=== PATIENT | male | born 1945 | race Caucasian/White ===

== ENCOUNTER → 2018-08-12 | Outpatient (CLI) | payer MEDICARE, OTHER | LOC: M WUC 12:13 | DX: R05 Cough (principal) | CPT/HCPCS: 71046 ==

== ENCOUNTER → 2021-10-22 | Outpatient (CLI) | payer MEDICARE, OTHER ==
[~2021-10-22] MED LIST: COUM1TAB19 PO; COUMADIN PO; MAPA500T17 PO; MUPI1OIN2 TOP; OXYC1TAB23 PO; TYLENOL PO; WARF5VL PO
== END ==
LOC: M WUC 09:05
PROVIDERS: ATTEND Internal Medicine
DX: R06.00 Dyspnea, unspecified (principal)

== ENCOUNTER → 2021-11-17 | Outpatient (CLI) | payer MEDICARE, OTHER | LOC: M CARPUL 09:05 | PROVIDERS: ATTEND Internal Medicine | DX: R06.00 Dyspnea, unspecified (principal) ==

== ENCOUNTER → 2022-01-23 | Outpatient (CLI) | payer MEDICARE, OTHER | LOC: M PAIN 09:00 | PROVIDERS: ATTEND Anesthesiology | DX: M54.50 Low back pain, unspecified (principal); E11.9 Type 2 diabetes mellitus without complications; I74.9 Embolism and thrombosis of unspecified artery; M79.18 Myalgia, other site; Z96.651 Presence of right artificial knee joint; Z88.0 Allergy status to penicillin; Z91.040 Latex allergy status; Z79.84 Long term (current) use of oral hypoglycemic drugs; Z79.899 Other long term (current) drug therapy ==

== ENCOUNTER → 2022-02-02 | Outpatient (CLI) | payer MEDICARE, OTHER | LOC: M RAD 08:28 | PROVIDERS: ATTEND Physician Assistant Medical | DX: K42.9 Umbilical hernia without obstruction or gangrene (principal) ==

== ENCOUNTER → 2022-11-26 | Outpatient (REF) | payer MEDICARE, OTHER ==
[2022-11-26 13:51] LABS: PERCENT SATURATION 7.9 % (19.7-50.0)
[2022-11-26 13:52] LABS: FOLATE 20.3 NG/ML (>5.4)
== END ==
LOC: M LAB REF 12:10
PROVIDERS: ATTEND Internal Medicine
DX: D50.9 Iron deficiency anemia, unspecified (principal)

== ENCOUNTER → 2022-12-17 | Outpatient (CLI) | payer MEDICARE, OTHER | LOC: M RAD 08:22 | PROVIDERS: ATTEND Internal Medicine | DX: R74.8 Abnormal levels of other serum enzymes (principal) ==

== ENCOUNTER → 2022-12-18 | Outpatient (REF) | payer MEDICARE, OTHER | LOC: M LAB REF 16:23 | PROVIDERS: ATTEND Internal Medicine | DX: K86.2 Cyst of pancreas (principal) ==

== ENCOUNTER → 2023-01-01 | Outpatient (CLI) | payer MEDICARE, OTHER | LOC: M PLARAD 09:07 | PROVIDERS: ATTEND Orthopaedic Surgery | DX: R10.9 Unspecified abdominal pain (principal) ==

== ENCOUNTER → 2023-01-13 | Outpatient (CLI) | payer MEDICARE, OTHER ==
[~2023-01-13] MED LIST changes: +ADJU0.5V IM; +ELIQ5TAB; +FERR325T3 PO; +GABA-1171 PO; +LIDO5DIS41 TOP; +LIDOCAINE 1% MDV 20ML VIAL As Ordered ONE; +METF10004 PO; +SIMV20TA22 PO; +VITMTA PO
[2023-01-13 14:45] VITALS: BP 132/62
== END ==
LOC: M IRPRO 11:20
PROVIDERS: ATTEND Internal Medicine
DX: K76.0 Fatty (change of) liver, not elsewhere classified (principal)

== ENCOUNTER → 2023-01-26 | Outpatient (CLI) | payer MEDICARE, OTHER ==
[~2023-01-26] MED LIST changes: -LIDOCAINE 1% MDV 20ML VIAL As Ordered ONE
== END ==
LOC: M LABSMTC 08:53
PROVIDERS: ATTEND Anesthesiology
DX: Z20.828 Contact with and (suspected) exposure to other viral communicable diseases (principal); Z11.51 Encounter for screening for human papillomavirus (HPV)

== ENCOUNTER → 2023-01-28 | Outpatient (CLI) | payer MEDICARE, OTHER ==
[~2023-01-28] MED LIST changes: +LIDOCAINE 1% MDV 20ML VIAL As Ordered ONE; +MIDAZOLAM INJ 2MG/2ML VIAL As Ordered ONE; +NS 1,000 ML IV SCH; +VANCOMYCIN 1000MG/20ML VIAL As Ordered ONE; +VANCOMYCIN HCL 1,000 MG, VIAL MATE ADAPTER 1 EACH in NS 250 ML IV ONE; +diphenhydrAMINE 50MG/ML VIAL As Ordered ONE; +fentaNYL 100 MCG/2 ML INJECTION As Ordered ONE
[2023-01-28 15:00] VITALS: BP 119/65
== END ==
LOC: M IRPRO 10:53
PROVIDERS: ATTEND Specialist
DX: C25.9 Malignant neoplasm of pancreas, unspecified (principal)
CPT/HCPCS: 36561; 99152; C1769; C1788; C1894; J1200; J1642; J1644; J2250; J3010; J3370

== ENCOUNTER → 2023-02-16 | Outpatient (CLI) | payer MEDICARE, OTHER ==
[~2023-02-16] MED LIST changes: +ACET650T61 PO; +DULC10SU2 PR; -ELIQ5TAB; +ELIQ5TAB PO; +FERR325T19 PO; +HYDR-3715 PO; -LIDOCAINE 1% MDV 20ML VIAL As Ordered ONE; +METF750T36 PO; -MIDAZOLAM INJ 2MG/2ML VIAL As Ordered ONE; +MIRA3350 PO; -NS 1,000 ML IV SCH; +SENN-80 PO; -VANCOMYCIN 1000MG/20ML VIAL As Ordered ONE; -VANCOMYCIN HCL 1,000 MG, VIAL MATE ADAPTER 1 EACH in NS 250 ML IV ONE; -diphenhydrAMINE 50MG/ML VIAL As Ordered ONE; -fentaNYL 100 MCG/2 ML INJECTION As Ordered ONE
[2023-02-16 08:45] VITALS: BP 104/59
== END ==
LOC: M PAL 08:32
PROVIDERS: ATTEND Nurse Practitioner Adult Health
DX: C25.0 Malignant neoplasm of head of pancreas (principal); C79.51 Secondary malignant neoplasm of bone; C78.7 Secondary malignant neoplasm of liver and intrahepatic bile duct; D50.9 Iron deficiency anemia, unspecified; I48.91 Unspecified atrial fibrillation; Z85.528 Personal history of other malignant neoplasm of kidney; Z79.01 Long term (current) use of anticoagulants; Z79.84 Long term (current) use of oral hypoglycemic drugs; Z79.899 Other long term (current) drug therapy; Z90.5 Acquired absence of kidney; E11.9 Type 2 diabetes mellitus without complications; E78.5 Hyperlipidemia, unspecified; M54.50 Low back pain, unspecified; I87.2 Venous insufficiency (chronic) (peripheral); N18.30 Chronic kidney disease, stage 3 unspecified; Z87.891 Personal history of nicotine dependence; Z51.5 Encounter for palliative care; Z66 Do not resuscitate; G89.3 Neoplasm related pain (acute) (chronic); M25.562 Pain in left knee; R53.83 Other fatigue; K59.00 Constipation, unspecified; Z88.0 Allergy status to penicillin; Z91.048 Other nonmedicinal substance allergy status; Z86.73 Personal history of transient ischemic attack (TIA), and cerebral infarction without residual deficits
CPT/HCPCS: G0463 ×2

== ENCOUNTER → 2023-02-16 | Outpatient (POV) | payer MEDICARE, OTHER ==
[~2023-02-16] VITALS: Ht 190.5 cm; Wt 115.4 kg
[~2023-02-16] MED LIST changes: +ATIV1TAB7 PO; +HYOS125TA SL; +MORP1SOL SL; +TRAN1DIS4 TOP
[2023-02-16 10:50] VITALS: BP 121/62
== END ==
LOC: M IRPOV 10:26
PROVIDERS: ATTEND Radiology Diagnostic Radiology
DX: Z45.2 Encounter for adjustment and management of vascular access device (principal); Z88.0 Allergy status to penicillin; Z91.048 Other nonmedicinal substance allergy status

== ENCOUNTER → 2023-02-17 | Outpatient (CLI) | payer MEDICARE, OTHER ==
[~2023-02-17] MED LIST changes: -ATIV1TAB7 PO; -FERR325T19 PO; -HYOS125TA SL; +LIDOCAINE 1% MDV 20ML VIAL As Ordered ONE; -MORP1SOL SL; -TRAN1DIS4 TOP
[2023-02-17 12:30] VITALS: BP 107/55
== END ==
LOC: M IRPRO 02-16 10:13
PROVIDERS: ATTEND Specialist
DX: C25.9 Malignant neoplasm of pancreas, unspecified (principal); D13.4 Benign neoplasm of liver

== ENCOUNTER 2023-02-19 21:52 | Observation (INO) | payer MEDICARE, OTHER ==
[~2023-02-19] VITALS: Ht 193 cm; Wt 124.0 kg
[~2023-02-19 21:52] MED LIST changes: -LIDOCAINE 1% MDV 20ML VIAL As Ordered ONE; +SENN-186 PO; -SENN-80 PO
[2023-02-19] MEDS ORDERED: NS 1,000 ML IV SCH (22:10)
[2023-02-19] MEDS ORDERED: MORPHINE 2 MG/ML 1ML VIAL IV PRN (22:10)
[2023-02-19] MEDS ORDERED: ISOVUE-370 76% 100ML VIAL As Ordered ONE (22:12)
[2023-02-19 22:26] LABS: BASO % 0.1 % (0.0-1.0); EOS # 0.1 10^3/uL (0.0-0.5); EOS % 0.4 % (0.0-3.0); HEMATOCRIT 27.6 % (42.0-52.0); HEMOGLOBIN 8.2 g/dl (13.5-17.5); LYMPH # 1.6 10^3/uL (1.5-5.0); LYMPH % 12.1 % (24.0-44.0); MEAN CORPUSCULAR HEMOGLOBIN 25.5 pg (27.0-33.0); MEAN CORPUSCULAR HGB CONC 29.7 g/dl (32.0-36.5); MEAN CORPUSCULAR VOLUME 85.7 fl (80.0-96.0); MONO # 1.2 10^3/uL (0.0-0.8); MONO % 9.1 % (2.0-8.0); NEUTROPHILS # 10.5 10^3/uL (1.5-8.5); NEUTROPHILS % 77.6 % (36.0-66.0); PLATELET COUNT, AUTOMATED 540 10^3/uL (150-450); RED BLOOD COUNT 3.22 10^6/uL (4.30-6.10); WHITE BLOOD COUNT 13.6 10^3/uL (4.0-10.0)
[2023-02-19 22:41] LABS: INR 1.41; PROTHROMBIN TIME 17.5 SECONDS (12.5-14.5)
[2023-02-19 22:42] LABS: PARTIAL THROMBOPLASTIN TIME 55.8 SECONDS (24.8-34.2)
[2023-02-19 22:52] LABS: LIPASE 53 U/L (12-53)
[2023-02-19 22:54] LABS: ALBUMIN 1.1 G/DL (3.2-5.2); ALKALINE PHOSPHATASE 848 U/L (46-116); ALT/SGPT 51 U/L (7.0-40); AST/SGOT 95 U/L (<34); BILIRUBIN,DIRECT 0.5 MG/DL (<0.4); BILIRUBIN,TOTAL 0.6 MG/DL (0.3-1.2); TOTAL PROTEIN 5.1 G/DL (5.7-8.2)
[2023-02-19 22:55] LABS: RSV AMPLIFICATION NEGATIVE (NEGATIVE)
[2023-02-19 23:28] LABS: CK-MB VALUE MASS < 1.0 NG/ML (<3.6)
[2023-02-19 23:30] LABS: CPK CREATINE PHOSPHOKINASE < 15 U/L (46-171)
[2023-02-19] MEDS ORDERED: GI COCKTAIL 50ML BTL(HYOSCYAMINE/MAALOX/LIDOCAINE VISCOUS)(1:3:1) PO ONE (23:40)
[2023-02-19 23:58] LABS: CK-MB VALUE MASS < 1.0 NG/ML (<3.6)
[2023-02-20 00:01] LABS: CPK CREATINE PHOSPHOKINASE < 15 U/L (46-171)
[2023-02-20] MEDS ORDERED: FERR325T19 PO (00:37)
[2023-02-20] MEDS ORDERED: HOME MED LIST COMPLETE! XX SCH (00:40)
[2023-02-20] MEDS ORDERED: ONDANSETRON 4MG ORAL DISINTEGRATING TAB PO PRN (01:00)
[2023-02-20] MEDS ORDERED: PERCOCET 5MG/325MG TAB PO PRN ×2 (01:00)
[2023-02-20] MEDS ORDERED: LR 1,000 ML IV ONE (01:00)
[2023-02-20] MEDS ORDERED: ACETAMINOPHEN TAB 650MG DOSE (2X325MG) PO PRN (01:00)
[2023-02-20 03:08] VITALS: BP 104/59
[2023-02-20 06:05] VITALS: BP 108/59
[2023-02-20 08:39] LABS: HEMATOCRIT 27.2 % (42.0-52.0); HEMOGLOBIN 8.1 g/dl (13.5-17.5); MEAN CORPUSCULAR HEMOGLOBIN 25.6 pg (27.0-33.0); MEAN CORPUSCULAR HGB CONC 29.8 g/dl (32.0-36.5); MEAN CORPUSCULAR VOLUME 86.1 fl (80.0-96.0); PLATELET COUNT, AUTOMATED 516 10^3/uL (150-450); RED BLOOD COUNT 3.16 10^6/uL (4.30-6.10); WHITE BLOOD COUNT 14.3 10^3/uL (4.0-10.0)
[2023-02-20] MEDS ORDERED: OMEPRAZOLE 20MG CAP PO SCH (09:00)
[2023-02-20 09:06] LABS: IRON (FE) 6 UG/DL (65-175)
[2023-02-20 09:07] LABS: PERCENT SATURATION 4.9 % (19.7-50.0); TOTAL IRON BINDING CAPACITY 123 UG/DL (250-425)
[2023-02-20 09:10] LABS: ALBUMIN 1.1 G/DL (3.2-5.2); ALKALINE PHOSPHATASE 777 U/L (46-116); ALT/SGPT 46 U/L (7.0-40); AST/SGOT 89 U/L (<34); BILIRUBIN,TOTAL 0.6 MG/DL (0.3-1.2); BLOOD UREA NITROGEN 20 MG/DL (9-23); CALCIUM LEVEL 8.6 MG/DL (8.3-10.6); CARBON DIOXIDE LEVEL 26 MMOL/L (20-31); CHLORIDE LEVEL 98 MMOL/L (98-107); CREATININE FOR GFR 0.81 MG/DL (0.70-1.30); FERRITIN 774.7 NG/ML (10.5-307.3); GLOMERULAR FILTRATION RATE > 60.0 (>42); GLUCOSE, FASTING 205 MG/DL (74-106); MAGNESIUM LEVEL 1.8 MG/DL (1.8-2.4); POTASSIUM SERUM 4.9 MMOL/L (3.5-5.1); SODIUM LEVEL 129 MMOL/L (136-145)
[2023-02-20] MEDS: FERROUS SULFATE 325MG TAB PO SCH ×2 (10:11→21:59)
[2023-02-20] MEDS: LIDOCAINE 5% (LIDODERM) PATCH TOP SCH (10:13)
[2023-02-20] MEDS ORDERED: GLUCAGON INJ 1MG VIAL SC PRN (11:15)
[2023-02-20] MEDS ORDERED: DEXTROSE 50% 50ML SYRINGE IV PRN (11:15)
[2023-02-20] MEDS ORDERED: GLUCOSE 4GM CHEW TABLET PO PRN (11:15)
[2023-02-20] MEDS: INSULIN LISPRO (NovoLOG) PER UNIT SC SCH ×3 (12:00→21:00)
[2023-02-20] MEDS ORDERED: FERRIC CARBOXYMALTOSE INJ 750 MG, VIAL MATE ADAPTER 1 EACH in NS 250 ML IV ONE (13:00)
[2023-02-20] MEDS ORDERED: MIRALAX *UNIT DOSE* 17GM PACKET PO PRN (13:55)
[2023-02-20 14:00] VITALS: BP 102/59
[2023-02-20] MEDS: SENNA 8.6 MG TAB (SENOKOT) PO PRN (15:00)
[2023-02-20 20:00] VITALS: BP 102/59
[2023-02-20] MEDS: SIMVASTATIN 20 MG TAB PO SCH (21:59)
[2023-02-21] VITALS (10 sets, daily range): BP systolic 101–122; BP diastolic 50–70; O2SAT 90–91
[2023-02-21 06:21] LABS: HEMATOCRIT 25.9 % (42.0-52.0); HEMOGLOBIN 7.7 g/dl (13.5-17.5); MEAN CORPUSCULAR HEMOGLOBIN 25.4 pg (27.0-33.0); MEAN CORPUSCULAR HGB CONC 29.7 g/dl (32.0-36.5); MEAN CORPUSCULAR VOLUME 85.5 fl (80.0-96.0); PLATELET COUNT, AUTOMATED 537 10^3/uL (150-450); RED BLOOD COUNT 3.03 10^6/uL (4.30-6.10); WHITE BLOOD COUNT 12.3 10^3/uL (4.0-10.0)
[2023-02-21 06:45] LABS: BLOOD UREA NITROGEN 20 MG/DL (9-23); CALCIUM LEVEL 8.6 MG/DL (8.3-10.6); CARBON DIOXIDE LEVEL 28 MMOL/L (20-31); CHLORIDE LEVEL 100 MMOL/L (98-107); CREATININE FOR GFR 0.77 MG/DL (0.70-1.30); GLOMERULAR FILTRATION RATE > 60.0 (>42); GLUCOSE, FASTING 132 MG/DL (74-106); POTASSIUM SERUM 4.9 MMOL/L (3.5-5.1); SODIUM LEVEL 132 MMOL/L (136-145)
[2023-02-21] MEDS: FERROUS SULFATE 325MG TAB PO SCH ×2 (08:25→20:10)
[2023-02-21] MEDS: APIXABAN 5 MG TAB (ELIQUIS) PO SCH ×2 (08:25→20:10)
[2023-02-21] MEDS: OMEPRAZOLE 20MG CAP PO SCH (08:25)
[2023-02-21] MEDS: SENNA 8.6 MG TAB (SENOKOT) PO PRN (08:25)
[2023-02-21] MEDS: LIDOCAINE 5% (LIDODERM) PATCH TOP SCH (08:26)
[2023-02-21] MEDS: INSULIN LISPRO (NovoLOG) PER UNIT SC SCH ×4 (08:26→21:00)
[2023-02-21] MEDS: NYSTATIN 100,000 UNITS/GM TOPICAL PWD 15GM TOP SCH ×2 (09:00→20:12)
[2023-02-21] MEDS ORDERED: FUROSEMIDE 40MG/4ML VIAL IV ONE (10:50)
[2023-02-21] MEDS ORDERED: FUROSEMIDE 20MG/2ML VIAL IV ONE (20:00)
[2023-02-21] MEDS: SIMVASTATIN 20 MG TAB PO SCH (20:10)
[2023-02-22 05:35] VITALS: BP 108/50
[2023-02-22 06:01] LABS: BASO % 0.1 % (0.0-1.0); EOS % 0.3 % (0.0-3.0); HEMATOCRIT 28.9 % (42.0-52.0); HEMOGLOBIN 8.6 g/dl (13.5-17.5); LYMPH # 1.4 10^3/uL (1.5-5.0); LYMPH % 10.2 % (24.0-44.0); MEAN CORPUSCULAR HEMOGLOBIN 25.7 pg (27.0-33.0); MEAN CORPUSCULAR HGB CONC 29.8 g/dl (32.0-36.5); MEAN CORPUSCULAR VOLUME 86.3 fl (80.0-96.0); MONO # 1.2 10^3/uL (0.0-0.8); MONO % 8.9 % (2.0-8.0); NEUTROPHILS % 79.6 % (36.0-66.0); PLATELET COUNT, AUTOMATED 560 10^3/uL (150-450); RED BLOOD COUNT 3.35 10^6/uL (4.30-6.10); WHITE BLOOD COUNT 13.9 10^3/uL (4.0-10.0)
[2023-02-22 06:34] LABS: ALBUMIN 1.2 G/DL (3.2-5.2); ALKALINE PHOSPHATASE 739 U/L (46-116); ALT/SGPT 37 U/L (7.0-40); AST/SGOT 68 U/L (<34); BILIRUBIN,TOTAL 0.7 MG/DL (0.3-1.2); BLOOD UREA NITROGEN 21 MG/DL (9-23); CALCIUM LEVEL 8.7 MG/DL (8.3-10.6); CARBON DIOXIDE LEVEL 29 MMOL/L (20-31); CHLORIDE LEVEL 100 MMOL/L (98-107); CREATININE FOR GFR 0.91 MG/DL (0.70-1.30); GLOMERULAR FILTRATION RATE > 60.0 (>42); GLUCOSE, FASTING 126 MG/DL (74-106); POTASSIUM SERUM 4.5 MMOL/L (3.5-5.1); SODIUM LEVEL 132 MMOL/L (136-145); TOTAL PROTEIN 5.2 G/DL (5.7-8.2)
[2023-02-22] MEDS: INSULIN LISPRO (NovoLOG) PER UNIT SC SCH (07:30)
[2023-02-22] MEDS: OMEPRAZOLE 20MG CAP PO SCH (09:00)
[2023-02-22] MEDS: FERROUS SULFATE 325MG TAB PO SCH (09:00)
[2023-02-22] MEDS: APIXABAN 5 MG TAB (ELIQUIS) PO SCH (09:00)
[2023-02-22 10:02] VITALS: BP 86/52
[2023-02-22] MEDS: NYSTATIN 100,000 UNITS/GM TOPICAL PWD 15GM TOP SCH (10:02)
[2023-02-22] MEDS: LIDOCAINE 5% (LIDODERM) PATCH TOP SCH (10:19)
[2023-02-22] MEDS ORDERED: SCOPOLAMINE 1MG TRANSDERMAL PATCH TOP PRN (10:20)
[2023-02-22] MEDS ORDERED: LORazepam 1 MG TAB PO PRN (10:20)
[2023-02-22] MEDS ORDERED: MORPHINE 10MG/0.5ML ORAL CONCENTRATE SOLUTION U/D SL PRN (10:20)
[2023-02-22] MEDS ORDERED: HYOSCYAMINE SULFATE 0.125 MG SUBL TABLET PO PRN (10:20)
[2023-02-22] MEDS ORDERED: NYSTATIN 100,000 UNITS/GM TOPICAL PWD 15GM TOP PRN (10:40)
[2023-02-22] MEDS ORDERED: ATROPINE SULFATE 1% OPHTH SOLN 2ML BTL SL PRN (13:50)
[2023-02-22] MEDS: MORPHINE 10MG/0.5ML ORAL CONCENTRATE SOLUTION U/D SL PRN ×2 (14:12→22:34)
[2023-02-23] MEDS: MORPHINE 10MG/0.5ML ORAL CONCENTRATE SOLUTION U/D SL PRN ×5 (00:59→17:09)
[2023-02-23] MEDS: LIDOCAINE 5% (LIDODERM) PATCH TOP SCH (09:33)
[2023-02-24] MEDS: MORPHINE 10MG/0.5ML ORAL CONCENTRATE SOLUTION U/D SL PRN ×4 (00:31→09:16)
[2023-02-24] MEDS ORDERED: ATIV1TAB7 PO (08:31)
[2023-02-24] MEDS ORDERED: HYOS125TA SL (08:31)
[2023-02-24] MEDS ORDERED: TRAN1DIS4 TOP (08:31)
[2023-02-24] MEDS ORDERED: MORP1SOL SL (08:31)
[2023-02-24] MEDS: LIDOCAINE 5% (LIDODERM) PATCH TOP SCH (09:17)
== END 2023-02-24 10:30 | disposition hospice, home (50) ==
LOC: EDBD 21:52 → M ED 21:52 → M ED INP 21:53 → UNDOADMOB 02-20 01:00 → M ED INP 02-20 01:00 → M MSPAV 02-20 03:10 → M ED INP 02-20 03:10 → UNDODISOB 02-24 10:30
PROVIDERS: ADMIT Family Medicine; ATTEND Internal Medicine
DX: C79.9 Secondary malignant neoplasm of unspecified site (principal); R07.9 Chest pain, unspecified; E63.9 Nutritional deficiency, unspecified; D72.829 Elevated white blood cell count, unspecified; D64.9 Anemia, unspecified; R94.5 Abnormal results of liver function studies; I10 Essential (primary) hypertension; E11.9 Type 2 diabetes mellitus without complications; M25.562 Pain in left knee; K21.9 Gastro-esophageal reflux disease without esophagitis; E78.5 Hyperlipidemia, unspecified; I48.0 Paroxysmal atrial fibrillation; Z86.711 Personal history of pulmonary embolism; Z79.01 Long term (current) use of anticoagulants; Z79.899 Other long term (current) drug therapy; Z88.0 Allergy status to penicillin
CPT/HCPCS: 36415; 71046; 71275; 74177; 80047; 80048; 80053; 80076; 80503; 82550; 82553; 82728; 83550; 83605; 83690; 83735; 84145; 84300; 84466; 84484; 85025; 85027; 85610; 85730; 86850; 86900; 86901; 86920; 87040; 87631; 93005; 93041; 96361; 96365; 96375; 96376; 97162; 97530; 99285; G0378; J1439; J1815; J1940; P9016; Q9967